=== PATIENT | male | born 1935 | race Caucasian/White ===

== ENCOUNTER 2022-12-26 01:42 | Inpatient (IN) | payer OTHER ==
[2022-12-26 02:10] LABS: #Lymphocytes 1.2 thou/uL (1.20-3.40); #Monocytes 0.6 thou/uL (0.11-0.59); #Neutrophils 7.9 thou/uL (1.40-6.50); %Basophils 0.3 % (0.0-1.0); %Eosinophils 0.2 % (0.0-10.0); %Lymphocytes 12.2 % (21.0-51.0); %Monocytes 6.4 % (0.0-10.0); %Neutrophils 80.9 % (42.0-75.0); Hemoglobin 5.4 g/dL (14.0-18.0); Mean Corpuscular HGB CONC 32.2 g/dL (32.0-36.0); Mean Corpuscular Volume 99.3 fl (78.0-98.0); Mean Platelet Volume 8.1 fL (7.4-10.4); Platelet Count 145 10x3/uL (130-400); RBC Distribution Width 18.5 % (11.5-14.5); Red Blood Cell (RBC) Count 1.69 mill/uL (4.70-6.10); White Blood Cell (WBC) Count 9.7 10x3/uL (4.8-10.8)
[2022-12-26] MEDS ORDERED: Pantoprazole 40 MG VIAL ONE ×2 (02:13→02:28)
[2022-12-26] MEDS ORDERED: Ondansetron PF 4 MG/2 ML Vial ONE (02:13)
[2022-12-26 02:20] LABS: Bilirubin Negative (Negative); Blood, Urine Negative (Negative); Clarity Clear (Clear); Glucose, Urine (Dipstick) Normal (Negative); Ketone, Urine 10 mg/dL (Negative); Leukocyte Negative Leu/uL (Negative); Nitrite Negative (Negative); Protein, Urine (Dipstick) Negative (Neg-Trace); Specific Gravity, Urine 1.022 (1.002-1.036); Urobilinogen Normal mg/dL (Less than 2)
[2022-12-26 02:23] LABS: INR-International Normal Ratio 2.3; Prothrombin Time 26.6 sec (12.0-14.7)
[2022-12-26 02:29] LABS: Amphetamine Not Detected (NotDetected); Barbiturates Screen Not Detected (NotDetected); Benzodiazepine Screen Not Detected (NotDetected); Cocaine Metabolite Screen Not Detected (NotDetected); Methadone Not Detected (NotDetected); Methamphetamine Not Detected (NotDetected); Opiate Screen Not Detected (NotDetected); Oxycodone Screen Not Detected (NotDetected); Phencyclidine (PCP) Not Detected (NotDetected); THC/Cannabinoid Screen Not Detected (NotDetected); Tricyclic Screen Detected (NotDetected)
[2022-12-26 02:31] LABS: ALT (SGPT) 8 U/L (8-55); AST (SGOT) 10 U/L (5-34); Albumin 2.5 g/dL (3.4-4.8); Alkaline Phosphatase 50 U/L (40-110); Anion Gap 17 mmol/L (10-20); BUN (Urea Nitrogen) 68 mg/dL (8.4-25.7); Bilirubin, Total 0.2 mg/dL (0.2-1.2); Calc. Creatinine Clearance 0 mL/min (70-130); Calcium 7.9 mg/dL (7.8-10.44); Carbon Dioxide 14 mmol/L (23-31); Chloride 112 mmol/L (98-107); Estimated GFR 78; Globulin 1.6 g/dL (2.4-3.5); Glucose 189 mg/dL (83-110); Lipase 37 U/L (8-78); Potassium 3.9 mmol/L (3.5-5.1); Protein, Total 4.1 g/dL (5.8-8.1); Sodium 139 mmol/L (136-145)
[2022-12-26 02:41] LABS: Acetaminophen Less than 10.0 mcg/mL (10.0-30.0); Alcohol Less than 10 mg/dL (Less than 10); Salicylate Less than 8.0 mg/dL (15.0-30.0)
[2022-12-26 02:46] LABS: Base Excess -10.4 mEq/L (-2.0 to +3.0); Chloride (VBG) 111 mmol/L (98-106); Sodium 135.3 mmol/L (133-146); pH (venous) 7.38 (7.32-7.43)
[2022-12-26] MEDS ORDERED: HUMAN PROTHROMBIN COMPLX IV SCH (03:15)
[2022-12-26] MEDS ORDERED: [UNRECOGNIZED DRUG - OTHER] IV SCH (03:15)
[2022-12-26] MEDS ORDERED: HUM PROTHROMBIN CPLX IV SCH (03:15)
[2022-12-26 03:55] LABS: Actual Bicarbonate (HCO3v) 14 mEq/L (22-28); Hemoglobin (Hb) 4.3 g/dL (12.6-17.4)
[2022-12-26] MEDS ORDERED: cefTRIAXone\\ROCEPHIN 1 GM VIAL ONE (04:14)
[2022-12-26 04:39] LABS: SARS-CoV-2 NAA Rapid Test Not Detected (NotDetected)
[2022-12-26] MEDS ORDERED: Ondansetron ODT 4 MG TAB PO PRN (04:46)
[2022-12-26] MEDS ORDERED: Acetaminophen 650 MG Suppository PR PRN (04:46)
[2022-12-26] MEDS ORDERED: Ondansetron PF 4 MG/2 ML Vial IVP PRN (04:46)
[2022-12-26 05:55] LABS: Lactic Acid 3.3 mmol/L (0.5-2.2)
[2022-12-26 06:03] LABS: Troponin I Less than 0.010 ng/mL (< 0.028)
[2022-12-26 07:18] LABS: Hemoglobin 6.2 g/dL (14.0-18.0); Mean Corpuscular HGB CONC 33.2 g/dL (32.0-36.0); Mean Corpuscular Hemoglobin 32.3 pg (27.0-31.0); Mean Corpuscular Volume 97.4 fl (78.0-98.0); Mean Platelet Volume 8.5 fL (7.4-10.4); Platelet Count 109 10x3/uL (130-400); RBC Distribution Width 17.6 % (11.5-14.5); Red Blood Cell (RBC) Count 1.92 mill/uL (4.70-6.10); White Blood Cell (WBC) Count 5.2 10x3/uL (4.8-10.8)
[2022-12-26 10:27] LABS: Troponin I Less than 0.010 ng/mL (< 0.028)
[2022-12-26 10:29] LABS: Lactic Acid 1.1 mmol/L (0.5-2.2)
[2022-12-26] MEDS: Pantoprazole 80 MG, Admixture Fee 1 EACH in Sodium Chloride 0.9% 100 ML IVPB SCH ×2 (13:07→22:46)
[2022-12-26] MEDS ORDERED: Iopamidol-370 76% 500 ML 1 ML ONE (13:39)
[2022-12-26] MEDS ORDERED: Calcium Carbonate 500 MG ChewTAB PO PRN (13:51)
[2022-12-26 16:34] LABS: #Monocytes 0.6 thou/uL (0.11-0.59); #Neutrophils 3.8 thou/uL (1.40-6.50); %Basophils 0.1 % (0.0-1.0); %Eosinophils 0.8 % (0.0-10.0); %Lymphocytes 18.9 % (21.0-51.0); %Monocytes 10.6 % (0.0-10.0); %Neutrophils 69.6 % (42.0-75.0); Hemoglobin 8.3 g/dL (14.0-18.0); Mean Corpuscular HGB CONC 33.8 g/dL (32.0-36.0); Mean Corpuscular Hemoglobin 31.5 pg (27.0-31.0); Mean Corpuscular Volume 93.3 fl (78.0-98.0); Mean Platelet Volume 8.8 fL (7.4-10.4); Platelet Count 92 10x3/uL (130-400); RBC Distribution Width 16.6 % (11.5-14.5); Red Blood Cell (RBC) Count 2.64 mill/uL (4.70-6.10); White Blood Cell (WBC) Count 5.5 10x3/uL (4.8-10.8)
[2022-12-26] MEDS ORDERED: Apixaban 5 MG TAB PO SCH (21:00)
[2022-12-26] MEDS: Melatonin 3 MG TAB PO SCH (21:45)
[2022-12-26] MEDS: Polyethylene Glycol 3350 17 GM Packet PO SCH (21:45)
[2022-12-27] MEDS ORDERED: Ketamine 50 MG/ML (10ML VIAL) ONE (07:41)
[2022-12-27] MEDS ORDERED: PROPOFOL 200 MG/20 ML VIAL ONE (08:16)
[2022-12-27] MEDS: Tamsulosin HCl 0.4 MG CAP PO SCH (09:34)
[2022-12-27] MEDS: Polyethylene Glycol 3350 17 GM Packet PO SCH ×2 (09:34→23:02)
[2022-12-27] MEDS: Pantoprazole 40 MG VIAL IVP SCH ×2 (09:35→23:01)
[2022-12-27 11:13] LABS: #Eosinphils 0.1 thou/uL (0.0-0.7); #Lymphocytes 0.8 thou/uL (1.20-3.40); #Monocytes 0.3 thou/uL (0.11-0.59); %Eosinophils 2.1 % (0.0-10.0); %Lymphocytes 18.2 % (21.0-51.0); %Monocytes 7.5 % (0.0-10.0); %Neutrophils 71.2 % (42.0-75.0); Hemoglobin 8.2 g/dL (14.0-18.0); Mean Corpuscular HGB CONC 33.1 g/dL (32.0-36.0); Mean Corpuscular Hemoglobin 31.2 pg (27.0-31.0); Mean Corpuscular Volume 94.1 fl (78.0-98.0); Mean Platelet Volume 8.6 fL (7.4-10.4); Platelet Count 98 10x3/uL (130-400); RBC Distribution Width 17.2 % (11.5-14.5); Red Blood Cell (RBC) Count 2.62 mill/uL (4.70-6.10); White Blood Cell (WBC) Count 4.2 10x3/uL (4.8-10.8)
[2022-12-27 11:21] LABS: INR-International Normal Ratio 1.2; Prothrombin Time 15.3 sec (12.0-14.7)
[2022-12-27 11:28] LABS: Anion Gap 11 mmol/L (10-20); BUN (Urea Nitrogen) 24 mg/dL (8.4-25.7); Calc. Creatinine Clearance 54 mL/min (70-130); Calcium 7.9 mg/dL (7.8-10.44); Carbon Dioxide 21 mmol/L (23-31); Chloride 112 mmol/L (98-107); Estimated GFR 87; Glucose 94 mg/dL (83-110); Potassium 3.8 mmol/L (3.5-5.1); Sodium 140 mmol/L (136-145)
[2022-12-27 14:14] LABS: #Eosinphils 0.1 thou/uL (0.0-0.7); #Lymphocytes 0.9 thou/uL (1.20-3.40); #Monocytes 0.4 thou/uL (0.11-0.59); #Neutrophils 3.3 thou/uL (1.40-6.50); %Basophils 0.3 % (0.0-1.0); %Eosinophils 1.8 % (0.0-10.0); %Lymphocytes 19.1 % (21.0-51.0); %Monocytes 7.8 % (0.0-10.0); %Neutrophils 71.1 % (42.0-75.0); Hemoglobin 8.5 g/dL (14.0-18.0); Mean Corpuscular HGB CONC 34.3 g/dL (32.0-36.0); Mean Corpuscular Hemoglobin 32.1 pg (27.0-31.0); Mean Corpuscular Volume 93.5 fl (78.0-98.0); Mean Platelet Volume 8.8 fL (7.4-10.4); Platelet Count 90 10x3/uL (130-400); RBC Distribution Width 17.1 % (11.5-14.5); Red Blood Cell (RBC) Count 2.66 mill/uL (4.70-6.10); White Blood Cell (WBC) Count 4.6 10x3/uL (4.8-10.8)
[2022-12-27 14:33] LABS: Anion Gap 9 mmol/L (10-20); BUN (Urea Nitrogen) 23 mg/dL (8.4-25.7); Calc. Creatinine Clearance 54 mL/min (70-130); Carbon Dioxide 23 mmol/L (23-31); Chloride 111 mmol/L (98-107); Estimated GFR 87; Glucose 97 mg/dL (83-110); Potassium 3.8 mmol/L (3.5-5.1); Sodium 139 mmol/L (136-145)
[2022-12-27] MEDS: Melatonin 3 MG TAB PO SCH (23:01)
[2022-12-27] MEDS ORDERED: Sterile Water 10 ML VIAL FS PRN (23:30)
[2022-12-27] MEDS ORDERED: OLANZapine 10 MG VIAL IM SCH (23:30)
[2022-12-28] MEDS: Tamsulosin HCl 0.4 MG CAP PO SCH (08:19)
[2022-12-28] MEDS: Pantoprazole 40 MG VIAL IVP SCH ×2 (08:19→20:50)
[2022-12-28] MEDS: Polyethylene Glycol 3350 17 GM Packet PO SCH ×2 (08:19→20:50)
[2022-12-28] MEDS: Acetaminophen 325 MG TAB PO PRN (08:19)
[2022-12-28] MEDS: Ferrous Gluconate 324 MG TAB PO SCH (11:14)
[2022-12-28 11:41] LABS: #Lymphocytes 0.7 thou/uL (1.20-3.40); #Monocytes 0.6 thou/uL (0.11-0.59); #Neutrophils 4.5 thou/uL (1.40-6.50); %Basophils 0.1 % (0.0-1.0); %Eosinophils 0.6 % (0.0-10.0); %Lymphocytes 12.3 % (21.0-51.0); %Monocytes 10.6 % (0.0-10.0); %Neutrophils 76.5 % (42.0-75.0); Hemoglobin 8.7 g/dL (14.0-18.0); Mean Corpuscular HGB CONC 33.6 g/dL (32.0-36.0); Mean Corpuscular Hemoglobin 31.7 pg (27.0-31.0); Mean Corpuscular Volume 94.1 fl (78.0-98.0); Mean Platelet Volume 8.9 fL (7.4-10.4); Platelet Count 108 10x3/uL (130-400); RBC Distribution Width 17.5 % (11.5-14.5); Red Blood Cell (RBC) Count 2.76 mill/uL (4.70-6.10); White Blood Cell (WBC) Count 5.8 10x3/uL (4.8-10.8)
[2022-12-28 12:00] LABS: Anion Gap 13 mmol/L (10-20); BUN (Urea Nitrogen) 22 mg/dL (8.4-25.7); Calc. Creatinine Clearance 0 mL/min (70-130); Calcium 8.5 mg/dL (7.8-10.44); Carbon Dioxide 20 mmol/L (23-31); Chloride 111 mmol/L (98-107); Estimated GFR 85; Glucose 117 mg/dL (83-110); Potassium 3.4 mmol/L (3.5-5.1); Sodium 141 mmol/L (136-145)
[2022-12-28] MEDS: Melatonin 3 MG TAB PO SCH (20:46)
[2022-12-28] MEDS: QUEtiapine 25 MG TAB PO SCH (20:46)
[2022-12-28] MEDS ORDERED: Sterile Water 10 ML VIAL FS PRN (21:00)
[2022-12-28] MEDS ORDERED: OLANZapine 10 MG VIAL IM SCH (21:00)
[2022-12-29] MEDS ORDERED: Lorazepam 2 MG/ML VIAL SLOW IVP SCH (01:30)
[2022-12-29] MEDS ORDERED: FLU VACC QS2022-23(65YR UP)/PF 240 MCG/0.7 ML SYRINGE IM ONE (09:00)
[2022-12-29] MEDS: Tamsulosin HCl 0.4 MG CAP PO SCH (10:11)
[2022-12-29] MEDS: Sucralfate 1 GM TAB PO SCH ×4 (10:11→20:45)
[2022-12-29] MEDS: Pantoprazole 40 MG VIAL IVP SCH ×2 (10:12→20:45)
[2022-12-29] MEDS: Polyethylene Glycol 3350 17 GM Packet PO SCH ×2 (10:12→21:10)
[2022-12-29] MEDS: QUEtiapine 25 MG TAB PO SCH (20:45)
[2022-12-29] MEDS: Melatonin 3 MG TAB PO SCH (20:45)
[2022-12-30] MEDS ORDERED: QUEtiapine 25 MG TAB PO SCH (09:00)
[2022-12-30] MEDS: Ferrous Gluconate 324 MG TAB PO SCH (11:57)
[2022-12-30] MEDS: Sucralfate 1 GM TAB PO SCH ×4 (11:57→20:09)
[2022-12-30] MEDS: Tamsulosin HCl 0.4 MG CAP PO SCH (11:57)
[2022-12-30] MEDS: Pantoprazole 40 MG VIAL IVP SCH ×2 (11:58→20:10)
[2022-12-30] MEDS: Polyethylene Glycol 3350 17 GM Packet PO SCH ×2 (11:58→20:24)
[2022-12-30] MEDS: Melatonin 3 MG TAB PO SCH (20:10)
[2022-12-30] MEDS: QUEtiapine 25 MG TAB PO SCH (20:10)
[2022-12-31] MEDS: QUEtiapine 25 MG TAB PO SCH (09:16)
[2022-12-31] MEDS: Tamsulosin HCl 0.4 MG CAP PO SCH (09:16)
[2022-12-31] MEDS: Pantoprazole 40 MG VIAL IVP SCH ×2 (09:16→20:29)
[2022-12-31] MEDS: Sucralfate 1 GM TAB PO SCH ×4 (09:17→23:08)
[2022-12-31] MEDS: Polyethylene Glycol 3350 17 GM Packet PO SCH ×2 (09:17→23:08)
[2022-12-31 11:03] LABS: #Eosinphils 0.2 thou/uL (0.0-0.7); #Lymphocytes 0.6 thou/uL (1.20-3.40); #Monocytes 0.4 thou/uL (0.11-0.59); #Neutrophils 2.1 thou/uL (1.40-6.50); %Basophils 0.7 % (0.0-1.0); %Eosinophils 6.3 % (0.0-10.0); %Lymphocytes 18.9 % (21.0-51.0); %Monocytes 12.9 % (0.0-10.0); %Neutrophils 61.2 % (42.0-75.0); Hemoglobin 8.1 g/dL (14.0-18.0); Mean Corpuscular HGB CONC 31.3 g/dL (32.0-36.0); Mean Corpuscular Hemoglobin 30.6 pg (27.0-31.0); Mean Corpuscular Volume 97.8 fl (78.0-98.0); Mean Platelet Volume 9.3 fL (7.4-10.4); Platelet Count 102 10x3/uL (130-400); RBC Distribution Width 16.9 % (11.5-14.5); Red Blood Cell (RBC) Count 2.64 mill/uL (4.70-6.10); White Blood Cell (WBC) Count 3.4 10x3/uL (4.8-10.8)
[2022-12-31 11:23] LABS: Anion Gap 15 mmol/L (10-20); BUN (Urea Nitrogen) 24 mg/dL (8.4-25.7); Calc. Creatinine Clearance 0 mL/min (70-130); Calcium 7.6 mg/dL (7.8-10.44); Carbon Dioxide 18 mmol/L (23-31); Chloride 116 mmol/L (98-107); Estimated GFR 85; Glucose 89 mg/dL (83-110); Potassium 3.4 mmol/L (3.5-5.1); Sodium 146 mmol/L (136-145)
[2022-12-31] MEDS ORDERED: D5 1/2 NS 500 ML IV SCH (12:15)
[2022-12-31] MEDS: Dextrose 5 %-0.45 % NaCl 1,000 ML IV SCH (14:34)
[2022-12-31] MEDS: Melatonin 3 MG TAB PO SCH (23:08)
[2023-01-01] MEDS: QUEtiapine 25 MG TAB PO SCH ×3 (01:18→21:18)
[2023-01-01 04:08] LABS: #Eosinphils 0.2 thou/uL (0.0-0.7); #Lymphocytes 0.8 thou/uL (1.20-3.40); #Monocytes 0.5 thou/uL (0.11-0.59); %Basophils 0.3 % (0.0-1.0); %Eosinophils 5.8 % (0.0-10.0); %Lymphocytes 23.2 % (21.0-51.0); %Monocytes 13.1 % (0.0-10.0); %Neutrophils 57.5 % (42.0-75.0); Hemoglobin 8.5 g/dL (14.0-18.0); Mean Corpuscular HGB CONC 32.2 g/dL (32.0-36.0); Mean Corpuscular Hemoglobin 31.5 pg (27.0-31.0); Mean Corpuscular Volume 97.7 fl (78.0-98.0); Mean Platelet Volume 9.3 fL (7.4-10.4); Platelet Count 98 10x3/uL (130-400); RBC Distribution Width 16.9 % (11.5-14.5); Red Blood Cell (RBC) Count 2.69 mill/uL (4.70-6.10); White Blood Cell (WBC) Count 3.5 10x3/uL (4.8-10.8)
[2023-01-01 04:26] LABS: Anion Gap 12 mmol/L (10-20); BUN (Urea Nitrogen) 25 mg/dL (8.4-25.7); Calc. Creatinine Clearance 0 mL/min (70-130); Calcium 7.7 mg/dL (7.8-10.44); Carbon Dioxide 23 mmol/L (23-31); Chloride 113 mmol/L (98-107); Estimated GFR 86; Glucose 109 mg/dL (83-110); Potassium 3.3 mmol/L (3.5-5.1); Sodium 145 mmol/L (136-145)
[2023-01-01] MEDS ORDERED: Chloraseptic Spray 180 ml Bottle PO PRN (05:16)
[2023-01-01] MEDS: Tamsulosin HCl 0.4 MG CAP PO SCH (09:48)
[2023-01-01] MEDS: Polyethylene Glycol 3350 17 GM Packet PO SCH ×2 (09:53→21:19)
[2023-01-01] MEDS: Sucralfate 1 GM TAB PO SCH ×4 (09:53→21:19)
[2023-01-01] MEDS: Pantoprazole 40 MG VIAL IVP SCH ×2 (09:54→21:18)
[2023-01-01] MEDS: Dextrose 5 %-0.45 % NaCl 1,000 ML IV SCH (09:55)
[2023-01-01] MEDS ORDERED: Potassium Chloride 20 MEQ TAB PO SCH (10:45)
[2023-01-01] MEDS: Ferrous Gluconate 324 MG TAB PO SCH (13:32)
[2023-01-01] MEDS: Melatonin 3 MG TAB PO SCH (21:17)
[2023-01-02] MEDS: Dextrose 5 %-0.45 % NaCl 1,000 ML IV SCH (08:42)
[2023-01-02] MEDS: Pantoprazole 40 MG VIAL IVP SCH ×2 (08:44→20:35)
[2023-01-02] MEDS: Sucralfate 1 GM TAB PO SCH ×4 (08:45→20:35)
[2023-01-02] MEDS: Polyethylene Glycol 3350 17 GM Packet PO SCH ×2 (08:45→20:34)
[2023-01-02] MEDS: Tamsulosin HCl 0.4 MG CAP PO SCH (08:45)
[2023-01-02] MEDS: QUEtiapine 25 MG TAB PO SCH ×2 (08:45→20:35)
[2023-01-02] MEDS: Melatonin 3 MG TAB PO SCH (20:36)
[2023-01-03] MEDS: Dextrose 5 %-0.45 % NaCl 1,000 ML IV SCH (05:06)
[2023-01-03] MEDS ORDERED: Electrolyte Replacement Protocol 1 EACH FS SCH (08:00)
[2023-01-03] MEDS ORDERED: Potassium Chloride 20 MEQ TAB PO SCH (08:15)
[2023-01-03] MEDS ORDERED: Electrolyte Replacement Protocol FS PRN (08:30)
[2023-01-03] MEDS: Sucralfate 1 GM TAB PO SCH ×4 (09:15→20:37)
[2023-01-03] MEDS: Tamsulosin HCl 0.4 MG CAP PO SCH (09:15)
[2023-01-03] MEDS: QUEtiapine 25 MG TAB PO SCH ×2 (09:15→20:37)
[2023-01-03] MEDS: Pantoprazole 40 MG VIAL IVP SCH ×2 (09:15→20:37)
[2023-01-03] MEDS: Polyethylene Glycol 3350 17 GM Packet PO SCH ×2 (09:15→20:37)
[2023-01-03] MEDS: Ferrous Gluconate 324 MG TAB PO SCH (13:36)
[2023-01-03 14:31] LABS: Potassium 4.3 mmol/L (3.5-5.1)
[2023-01-03] MEDS: Melatonin 3 MG TAB PO SCH (20:37)
[2023-01-04] MEDS: Dextrose 5 %-0.45 % NaCl 1,000 ML IV SCH (00:27)
[2023-01-04 07:56] LABS: #Eosinphils 0.2 thou/uL (0.0-0.7); #Monocytes 0.5 thou/uL (0.11-0.59); #Neutrophils 2.4 thou/uL (1.40-6.50); %Basophils 0.1 % (0.0-1.0); %Eosinophils 4.3 % (0.0-10.0); %Lymphocytes 24.4 % (21.0-51.0); %Monocytes 11.6 % (0.0-10.0); %Neutrophils 59.7 % (42.0-75.0); Hemoglobin 8.1 g/dL (14.0-18.0); Mean Corpuscular HGB CONC 32.5 g/dL (32.0-36.0); Mean Corpuscular Hemoglobin 31.5 pg (27.0-31.0); Mean Platelet Volume 9.2 fL (7.4-10.4); Platelet Count 105 10x3/uL (130-400); RBC Distribution Width 16.5 % (11.5-14.5); Red Blood Cell (RBC) Count 2.58 mill/uL (4.70-6.10)
[2023-01-04 08:14] LABS: Anion Gap 9 mmol/L (10-20); BUN (Urea Nitrogen) 17 mg/dL (8.4-25.7); Calc. Creatinine Clearance 75 mL/min (70-130); Calcium 7.5 mg/dL (7.8-10.44); Carbon Dioxide 22 mmol/L (23-31); Chloride 111 mmol/L (98-107); Estimated GFR 92; Glucose 90 mg/dL (83-110); Potassium 3.9 mmol/L (3.5-5.1); Sodium 138 mmol/L (136-145)
[2023-01-04] MEDS: Polyethylene Glycol 3350 17 GM Packet PO SCH ×2 (09:23→20:55)
[2023-01-04] MEDS: Pantoprazole 40 MG VIAL IVP SCH ×2 (09:23→20:55)
[2023-01-04] MEDS: Tamsulosin HCl 0.4 MG CAP PO SCH (09:23)
[2023-01-04] MEDS: Sucralfate 1 GM TAB PO SCH ×4 (09:23→20:56)
[2023-01-04] MEDS: QUEtiapine 25 MG TAB PO SCH ×2 (09:23→20:56)
[2023-01-04] MEDS: Melatonin 3 MG TAB PO SCH (20:55)
[2023-01-05 08:27] LABS: Anion Gap 10 mmol/L (10-20); BUN (Urea Nitrogen) 15 mg/dL (8.4-25.7); Calc. Creatinine Clearance 75 mL/min (70-130); Calcium 8.1 mg/dL (7.8-10.44); Carbon Dioxide 23 mmol/L (23-31); Chloride 109 mmol/L (98-107); Estimated GFR 92; Glucose 85 mg/dL (83-110); Potassium 3.9 mmol/L (3.5-5.1); Sodium 138 mmol/L (136-145)
[2023-01-05] MEDS: Polyethylene Glycol 3350 17 GM Packet PO SCH ×2 (08:53→20:45)
[2023-01-05] MEDS: Tamsulosin HCl 0.4 MG CAP PO SCH (08:53)
[2023-01-05] MEDS: QUEtiapine 25 MG TAB PO SCH ×2 (08:53→20:46)
[2023-01-05] MEDS: Pantoprazole 40 MG VIAL IVP SCH ×2 (08:53→20:47)
[2023-01-05] MEDS: Sucralfate 1 GM TAB PO SCH ×4 (08:53→20:46)
[2023-01-05] MEDS: Ferrous Gluconate 324 MG TAB PO SCH (13:06)
[2023-01-05] MEDS: Melatonin 3 MG TAB PO SCH (20:46)
[2023-01-05] MEDS: Acetaminophen 325 MG TAB PO PRN (20:50)
[2023-01-06 08:17] LABS: Anion Gap 7 mmol/L (10-20); BUN (Urea Nitrogen) 19 mg/dL (8.4-25.7); Calc. Creatinine Clearance 66 mL/min (70-130); Calcium 8.1 mg/dL (7.8-10.44); Carbon Dioxide 26 mmol/L (23-31); Chloride 109 mmol/L (98-107); Estimated GFR 89; Glucose 88 mg/dL (83-110); Potassium 3.9 mmol/L (3.5-5.1); Sodium 138 mmol/L (136-145)
[2023-01-06] MEDS: Sucralfate 1 GM TAB PO SCH ×2 (09:39→12:54)
[2023-01-06] MEDS: QUEtiapine 25 MG TAB PO SCH (09:39)
[2023-01-06] MEDS: Tamsulosin HCl 0.4 MG CAP PO SCH (09:40)
[2023-01-06] MEDS: Polyethylene Glycol 3350 17 GM Packet PO SCH (09:40)
[2023-01-06] MEDS: Pantoprazole 40 MG VIAL IVP SCH (09:40)
[2023-01-06 15:17] VITALS: BP 106/70; TEMP 97.8
== END 2023-01-06 15:51 | DRG 368 ==
LOC: ERS 01:42 → IMCU/EMU 03:53 → 2NO 12-27 17:40 → T4-B 01-01 16:42
PROVIDERS: ADMIT Student in an Organized Health Care Education/Training Program; ATTEND Internal Medicine
PROC: 30233N1 Transfusion of Nonautologous Red Blood Cells into Peripheral Vein, Percutaneous Approach (ICD-10-PCS; principal; 2022-12-26)
PROC: 0DB38ZX Excision of Lower Esophagus, Via Natural or Artificial Opening Endoscopic, Diagnostic (ICD-10-PCS; 2022-12-27)
DX: K21.01 Gastro-esophageal reflux disease with esophagitis, with bleeding (principal); G93.41 Metabolic encephalopathy; D62 Acute posthemorrhagic anemia; E87.20 Acidosis, unspecified; E87.0 Hyperosmolality and hypernatremia; F05 Delirium due to known physiological condition; Z66 Do not resuscitate; Z20.822 Contact with and (suspected) exposure to COVID-19; I10 Essential (primary) hypertension; E78.5 Hyperlipidemia, unspecified; K21.9 Gastro-esophageal reflux disease without esophagitis; K59.09 Other constipation; H35.30 Unspecified macular degeneration; K44.9 Diaphragmatic hernia without obstruction or gangrene; N40.0 Benign prostatic hyperplasia without lower urinary tract symptoms; Z78.1 Physical restraint status; Z89.611 Acquired absence of right leg above knee; Z88.1 Allergy status to other antibiotic agents; Z88.0 Allergy status to penicillin; Z79.899 Other long term (current) drug therapy; Z79.01 Long term (current) use of anticoagulants; Z86.718 Personal history of other venous thrombosis and embolism
CPT/HCPCS: 36415; 36430; 51701; 70450; 71045; 71275; 74174; 80048; 80053; 80306; 80307; 81003; 82140; 82274; 82805; 83605; 83690; 84132; 84443; 84484; 85025; 85610; 85730; 86850; 86900; 86901; 87040; 87086; 87811; 88305; 93005; 96365; 96366; 96374; 96375; C9113; J0696; J2060; J2405; J2704; J3490; J7042; J7168; P9016; Q0162; Q9967